=== PATIENT | male | born 1990 | race Two or more races ===

== ENCOUNTER 2024-03-25 14:43 | Emergency (ER) | payer OTHER ==
[~2024-03-25] VITALS: Ht 170.2 cm; Wt 90.7 kg
[2024-03-25 14:50] VITALS: TEMP 98.4
[2024-03-25] MEDS ORDERED: IBUPROFEN 400 MG TABLET ONE (15:00)
[2024-03-25] MEDS: IBUPROFEN 400 MG TABLET PO ONE (15:03)
[2024-03-25] MEDS ORDERED: IBUP-1957 PO (15:36)
[2024-03-25 16:23] VITALS: BP 133/84; O2SAT 97
== END 2024-03-25 16:24 | disposition home or self-care (01) ==
LOC: ER 14:51
DX: S70.02XA Contusion of left hip, initial encounter (principal); V89.2XXA Person injured in unspecified motor-vehicle accident, traffic, initial encounter; Y93.89 Activity, other specified; Y92.410 Unspecified street and highway as the place of occurrence of the external cause; Y99.8 Other external cause status
CPT/HCPCS: 73502